=== PATIENT | female | born 1960 | race Caucasian/White ===

== ENCOUNTER 2019-11-26 13:57 | Emergency (ER) | payer MEDICAID ==
[~2019-11-26] VITALS: Ht 170.2 cm; Wt 76.4 kg
[2019-11-26 14:15] VITALS: BP 131/79; TEMP 97.9
[2019-11-26] MEDS ORDERED: CEFTIN 250250 MG/TAB PO (14:43)
[2019-11-26 15:06] VITALS: PULSE 83
== END 2019-11-26 15:07 | disposition home or self-care (01) ==
LOC: COL.ER 13:57
DX: N39.0 Urinary tract infection, site not specified (principal); Z88.2 Allergy status to sulfonamides; Z88.5 Allergy status to narcotic agent

== ENCOUNTER 2019-12-24 08:56 | Emergency (ER) | payer MEDICAID ==
[~2019-12-24] VITALS: Ht 170.2 cm; Wt 68.2 kg
[~2019-12-24 08:56] MED LIST: CEFTIN 250250 MG/TAB PO
[2019-12-24 08:57] VITALS: TEMP 99.2
[2019-12-24 09:20] LABS: BASO % 0.5 % (0.0-2.0); EOS # 0.1 (0.0-0.7); EOS % 1.2 % (0-4.0); GRAN # 5.4 (1.4-6.5); GRAN % 65.7 % (42.2-75.2); HEMOGLOBIN 14.3 g/dl (12.5-16.0); LYMPH # 2.2 (1.2-3.4); LYMPH % 27.2 % (20.0-51.0); MEAN CELL VOLUME 90 fl (80.0-100.0); MEAN CORPUSCULAR HEMOGLOBIN 29 pg (27.0-31.0); MEAN CORPUSCULAR HGB CONC 33 g/dl (33.0-37.0); MEAN PLATELET VOLUME 9.4 fl (7.4-10.4); MONO # 0.4 (0.1-0.6); MONO % 5.2 % (1.7-9.3); PLATELET COUNT 289 K/mm3 (130-400); RED BLOOD COUNT 4.87 M/mm3 (4.10-5.30); REDCELL DISTRIBUTION WIDTH-CV 13.5 % (11.5-14.5)
[2019-12-24] MEDS ORDERED: ABILIFY 10MG TA10 MG PO (09:24)
[2019-12-24] MEDS ORDERED: PROZAC 20MG20 MG PO (09:24)
[2019-12-24] MEDS ORDERED: CLARITIN 1010 MG/TAB PO (09:24)
[2019-12-24] MEDS ORDERED: COLACE 100100 MG/CAP PO (09:24)
[2019-12-24] MEDS ORDERED: LEVOXYL0.025 MG PO (09:25)
[2019-12-24 09:34] LABS: ALANINE AMINOTRANSFERASE 116 U/L (4-34); ALBUMIN 4.1 gm/dL (3.5-5.0); ALKALINE PHOSPHATASE 120 U/L (50-136); ANION GAP 6 mmol/L (7-16); AST,SGOT 88 U/L (15-37); BILIRUBIN,TOTAL 0.5 mg/dL (0.0-1.0); BLOOD UREA NITROGEN 5 mg/dL (7-17); CALCIUM 9.3 mg/dL (8.4-10.2); CARBON DIOXIDE 27 mmol/L (22-30); CHLORIDE 106 mmol/L (98-107); CREATININE, serum 0.68 (0.52-1.25); GLUCOSE 86 mg/dL (74-106); MAGNESIUM 2.3 mg/dL (1.6-2.3); SODIUM 139 mmol/L (137-145); TOTAL PROTEIN 7.2 gm/dL (6.4-8.2)
[2019-12-24 09:35] LABS: ACETAMINOPHEN < 10 ug/mL (10-30); ALCOHOL(ethanol),MEDICAL < 10 mg/dL; SALICYLATE < 1.0 mg/dL
[2019-12-24 09:46] LABS: TROPONIN-I < 0.012 ng/mL (0.000-0.035)
[2019-12-24 09:48] LABS: COLLECTION METHOD CLEAN CATCH
[2019-12-24 10:02] LABS: PH 6 (5-8); SQUAMOUS EPITHELIAL 0-2 /hpf; URINE APPEARANCE Clear; URINE BACTERIA None Seen /hpf; URINE BILIRUBIN Negative (NEGATIVE); URINE BLOOD Negative (NEGATIVE); URINE COLOR Straw; URINE GLUCOSE Negative (NEGATIVE); URINE KETONE Negative (NEGATIVE); URINE LEUKOCYTE ESTERASE Negative (NEGATIVE); URINE NITRATE Negative (NEGATIVE); URINE PROTEIN(semi-quant) Negative (NEGATIVE); URINE RBC 0-2 /hpf; URINE UROBILINOGEN Negative (NEGATIVE)
[2019-12-24 10:08] LABS: TRICYCLIC ANTIDEPRESS URINE NEGATIVE
[2019-12-24 11:30] VITALS: BP 114/67; PULSE 66
== END 2019-12-24 12:55 | disposition home or self-care (01) ==
LOC: COL.ER 08:56
PROVIDERS: Emergency Medicine
DX: R41.82 Altered mental status, unspecified (principal); F31.81 Bipolar II disorder; E03.9 Hypothyroidism, unspecified; F17.210 Nicotine dependence, cigarettes, uncomplicated; N39.0 Urinary tract infection, site not specified; Z79.890 Hormone replacement therapy; Z88.2 Allergy status to sulfonamides; Z88.6 Allergy status to analgesic agent
CPT/HCPCS: J3411; J3475; J7030

== ENCOUNTER → 2020-01-18 | Outpatient (CLI) | payer MEDICAID ==
[~2020-01-18] MED LIST changes: +ABILIFY 10MG TA10 MG PO; +CLARITIN 1010 MG/TAB PO; +COLACE 100100 MG/CAP PO; +LEVOXYL0.025 MG PO; +PROZAC 20MG20 MG PO
== END ==
LOC: COL.CARD 09:48
DX: R56.9 Unspecified convulsions (principal)